=== PATIENT | male | born 1965 | race Caucasian/White ===

== ENCOUNTER 2022-07-26 20:04 | Observation (INO) ==
[~2022-07-26 20:04] MED LIST: methylPREDNISolone 125 MG/2 ML VIAL IVP ONE
[2022-07-26] MEDS ORDERED: *HR* HYDROmorphone (PF) 1 MG/ML SYRINGE IM ONE (20:32)
[2022-07-26] MEDS ORDERED: methylPREDNISolone 125 MG/2 ML VIAL IM ONE (20:32)
[2022-07-26] MEDS ORDERED: *HR* Promethazine 25 MG/ML VIAL IM ONE (20:32)
[2022-07-26 21:09] LABS: Basophils % 0.6 %; Eosinophils % 0.6 %; Hematocrit 50.5 % (37.5-50.1); Hemoglobin 17.5 g/dL (12.9-16.9); Immature Granulocytes % 0.7 % (0-4); Lymphocytes # 2.1 K/mcL (0.6-4.6); Lymphocytes % 29.9 %; Mean Corpuscular HGB Conc 34.7 g/dL (31.6-35.5); Mean Corpuscular Hemoglobin 28.6 pg (28.0-33.3); Mean Corpuscular Volume 82.7 fL (83.0-100.0); Mean Platelet Volume 9.4 fL (9.4-12.4); Monocytes # 0.4 K/mcL (0.0-1.3); Monocytes % 5.9 %; Neutrophils # 4.4 K/mcL (1.6-8.9); Platelet Count 160 K/mcL (140-400); Red Blood Count 6.11 M/mcL (4.19-5.50); Red Cell Distribution Width 13.1 % (11.5-14.5); Segmented Neutrophils % 62.3 %; White Blood Count 7.1 K/mcL (4.3-11.1)
[2022-07-26 21:15] LABS: VBG HCO3 24 mEq/L (21-27); VBG PCO2 37 mmHg (41-51); VBG PH 7.43 pH Units (7.32-7.42); VBG PO2 56 mmHg (25-50)
[2022-07-26 21:28] LABS: Alanine Aminotransferase 17 Units/L (7-52); Albumin 4.5 g/dL (3.5-5.7); Albumin/Globulin Ratio 1.3 (1.1-2.2); Alkaline Phosphatase 75 Units/L (34-104); Aspartate Amino Transferase 16 Units/L (13-39); BUN/Creatinine Ratio 29 (6-26); Bilirubin,Total 0.6 mg/dL (0.3-1.0); Blood Urea Nitrogen 26 mg/dL (6-20); Carbon Dioxide 23 mEq/L (23-29); Chloride 97 mEq/L (98-107); Globulin 3.4 g/dL (2.4-3.5); Glucose 151 mg/dL (70-105); Osmolality,Calculated 284 (280-300); Potassium 3.8 mEq/L (3.5-5.1); Sodium 133 mEq/L (136-145); Total Protein 7.9 g/dL (6.4-8.9)
[2022-07-26] MEDS ORDERED: Naloxone 0.4 MG/ML INJ IVP PRN (23:13)
[2022-07-26] MEDS ORDERED: *HR* HYDROcodone/Acet 5/325 mg TABLET PO PRN (23:13)
[2022-07-26] MEDS ORDERED: Ibuprofen 400 MG TABLET PO PRN (23:13)
[2022-07-26] MEDS ORDERED: *HR* Labetalol 20 MG/4 ML SYRINGE IVP ONE (23:46)
[2022-07-27] MEDS ORDERED: *HR* Dextrose 50 % in Water (Syg) 50 ML SYRINGE IVP PRN (00:21)
[2022-07-27] MEDS ORDERED: D5% in Water 1,000 ML IVC PRN (00:21)
[2022-07-27] MEDS ORDERED: Dextrose Gel 15 GM/37.5 ML TUBE PO PRN ×2 (00:21)
[2022-07-27] MEDS: Insulin LISPRO 300 UNITS/3 ML VIAL SUBQ SCH ×5 (00:35→21:09)
[2022-07-27] MEDS: Ondansetron 4 MG/2 ML VIAL IVP PRN ×3 (03:35→21:12)
[2022-07-27] MEDS ORDERED: Morphine Sulfate 2 MG/ML SYRINGE IVP ONE ×2 (03:40→06:42)
[2022-07-27] MEDS ORDERED: Iopamidol - 370 500 ML MLS IVP ONE (03:53)
[2022-07-27] MEDS ORDERED: *HR* Promethazine 25 MG/ML VIAL IM ONE ×2 (06:35→07:59)
[2022-07-27] MEDS ORDERED: Insulin LISPRO 300 UNITS/3 ML VIAL SUBQ SCH (07:30)
[2022-07-27 08:23] LABS: Basophils % 0.1 %; Hematocrit 47.7 % (37.5-50.1); Hemoglobin 16.4 g/dL (12.9-16.9); Immature Granulocytes % 0.7 % (0-4); Lymphocytes # 0.6 K/mcL (0.6-4.6); Lymphocytes % 7.6 %; Mean Corpuscular HGB Conc 34.4 g/dL (31.6-35.5); Mean Corpuscular Hemoglobin 28.4 pg (28.0-33.3); Mean Corpuscular Volume 82.5 fL (83.0-100.0); Mean Platelet Volume 9.7 fL (9.4-12.4); Monocytes # 0.1 K/mcL (0.0-1.3); Monocytes % 1.3 %; Neutrophils # 6.9 K/mcL (1.6-8.9); Platelet Count 168 K/mcL (140-400); Red Blood Count 5.78 M/mcL (4.19-5.50); Segmented Neutrophils % 90.3 %; White Blood Count 7.7 K/mcL (4.3-11.1)
[2022-07-27 08:40] LABS: BUN/Creatinine Ratio 26 (6-26); Blood Urea Nitrogen 23 mg/dL (6-20); Calcium 8.9 mg/dL (8.6-10.3); Carbon Dioxide 19 mEq/L (23-29); Chloride 96 mEq/L (98-107); Glucose 303 mg/dL (70-105); Osmolality,Calculated 287 (280-300); Potassium 4.6 mEq/L (3.5-5.1); Sodium 131 mEq/L (136-145)
[2022-07-27] MEDS: *HR* OxyCODONE Immed Rel 5 MG TABLET PO PRN ×2 (08:57)
[2022-07-27] MEDS ORDERED: methylPREDNISolone 125 MG/2 ML VIAL IVP SCH ×3 (09:00→20:00)
[2022-07-27] MEDS ORDERED: NON-FORMULARY MEDICATION 1 EACH EACH (Insulin Aspart Prot/Insuln Asp [Novolog Mix 70-30 Vi SQ SCH (09:00)
[2022-07-27] MEDS ORDERED: predniSONE 20 MG TABLET PO SCH ×2 (09:00)
[2022-07-27] MEDS: Insulin NPH 100 UNIT/ML (x5UNIT) SUBQ SCH ×2 (09:12→21:19)
[2022-07-27 12:50] LABS: C-Reactive Protein < 5 mg/L (Less than 10)
[2022-07-27] MEDS ORDERED: Ketorolac 30 MG/ML VIAL IVP PRN (15:00)
[2022-07-27] MEDS: *HR* HYDROmorphone (PF) 1 MG/ML SYRINGE IVP PRN ×2 (16:08→21:10)
[2022-07-27] MEDS: *HR* Promethazine 25 MG/ML VIAL IM PRN (16:08)
[2022-07-28 00:10] VITALS: RESP 16
[2022-07-28] MEDS: *HR* Promethazine 25 MG/ML VIAL IM PRN ×2 (01:52→10:04)
[2022-07-28] MEDS: *HR* HYDROmorphone (PF) 1 MG/ML SYRINGE IVP PRN ×3 (01:54→10:03)
[2022-07-28] MEDS: Ondansetron 4 MG/2 ML VIAL IVP PRN (05:52)
[2022-07-28] MEDS ORDERED: Dexamethasone Sodium Phos/PF 10 MG/ML VIAL IVP SCH (09:00)
[2022-07-28] MEDS: Insulin LISPRO 300 UNITS/3 ML VIAL SUBQ SCH ×3 (09:20→12:18)
[2022-07-28] MEDS: Insulin NPH 100 UNIT/ML (x5UNIT) SUBQ SCH (10:05)
[2022-07-28 11:23] VITALS: BP 168/89; PULSE 66; TEMP 98.1; O2SAT 94
[2022-07-28] MEDS ORDERED: Insulin LISPRO 300 UNITS/3 ML VIAL SUBQ SCH (11:32)
== END 2022-07-28 12:45 | disposition home or self-care (01) ==
LOC: INPPIK 20:04 → EMEROOPIK 20:04 → INPPIK 23:35
PROVIDERS: ADMIT Internal Medicine; ATTEND Internal Medicine